=== PATIENT | female | born 1940 | race Caucasian/White ===

== ENCOUNTER 2016-11-16 10:04 | Outpatient (CLI) | payer MEDICARE, OTHER ==
[2015-07-28 06:36] VITALS: BP 109/65
[2016-11-16 10:38] LABS: BASOPHILS % 0.3 (0.0-1.5); EOSINOPHILS % 2.1 % (0.0-6.8); LYMPHOCYTES # 1.5 # k/uL (0.6-4.0); MEAN CORPUSCULAR HEMOGLOBIN 30.1 pg (28.0-34.0); MONOCYTES # 0.2 # k/uL (0.0-0.9); MONOCYTES % 3.7 % (0.0-11.0); NEUTROPHILS # 4.8 # k/uL (1.4-7.7)
[2016-11-16 11:00] LABS: eGFR (African) > 60; eGFR (Non-African) > 60
--- NOTE | 2016-11-16 14:41 | Diagnostic Imaging Report ---
[facility] [address] [facility].[address] [address] Report Submission Date: Nov 16, 2016 12:48:26 PM TYPE SOLDERING MACHINE TENDER Patient Study Name: PRAVEENA QUINTANILLA Date: Nov 16, 2016 11:07:27 AM TYPE SOLDERING MACHINE TENDER Modality Type: CR Gender: F Description: ABDOMEN : 36 Institution: [facility] Physician LEVI WALLACE Abdomen -one view CLINICAL HISTORY: Abdominal bloating and constipation. Pain for 1 month. FINDINGS: Examination abdomen single AP view demonstrates postoperative changes with surgical clips in the right upper quadrant. Gas and stool are present in the colon with gas in some nondistended small bowel loops. There is no evidence of obstruction. Degenerative changes and mild levoscoliosis are evident in the lumbar vertebrae. IMPRESSION: Postoperative abdomen. Thoracolumbar spondylosis and mild levoscoliosis. Normal-appearing bowel gas pattern. Electronically signed on Nov 16, 2016 12:48:26 PM TYPE SOLDERING MACHINE TENDER by: Omid DE LA ROSA
--- NOTE | 2016-11-16 14:42 | Diagnostic Imaging Report ---
[facility] [address] [facility].[address] [address] Report Submission Date: Nov 16, 2016 1:08:26 PM PACKAGING MATERIALS INSPECTOR Patient Study Name: PRAVEENA QUINTANILLA Date: Nov 16, 2016 11:23:09 AM PACKAGING MATERIALS INSPECTOR Modality Type: CR Gender: F Description: SPINE : 36 Institution: [facility] Physician LEVI WALLACE Thoracic spine -three views CLINICAL HISTORY: Pain with coughing. FINDINGS: Examination of thoracic spine in AP, lateral and lateral swimmer's views demonstrates osteopenia of the bony structures. Compression fractures are evident at T10, T12 and L1. There is approximately 30% loss of vertebral height at T10 with 50% at T12 and 70% at L1. There is probable compression fracture T6 although this is not as well demonstrated. Pedicles are intact and the paravertebral soft tissues are within normal limits. IMPRESSION: Osteopenia and multiple compression fractures of uncertain age. Spondylosis. Electronically signed on Nov 16, 2016 1:08:26 PM PACKAGING MATERIALS INSPECTOR by: Omid DE LA ROSA
[2016-11-16 17:13] LABS: LIPASE 36 U/L (13-60)
[2016-11-16 23:10] LABS: SERUM IRON 108 ug/dL (37-145)
[2016-11-17 12:21] LABS: ADENOVIRUS F 40/41 Not Detected (Not Detected); ASTROVIRUS Not Detected (Not Detected); C. DIFFICILE (TOXIN A/B) Positive (Not Detected); CRYPTOSPORIDIUM Not Detected (Not Detected); CYCLOSPORA CAYETANENSIS Not Detected (Not Detected); ENTAMOEBA HISTOLYTICA Not Detected (Not Detected); GIARDIA LAMBLIA Not Detected (Not Detected); ROTAVIRUS A Not Detected (Not Detected); SAPOVIRUS Not Detected (Not Detected); VIBRIO CHOLERAE Not Detected (Not Detected)
== END 2016-11-16 10:05 ==
LOC: LAB 10:04
PROVIDERS: ATTEND Physician Assistant
DX: R14.0 Abdominal distension (gaseous) (principal); R71.8 Other abnormality of red blood cells
CPT/HCPCS: 36415; 72072; 74020; 80053; 82150; 83540; 83550; 83690; 85025; 87507

== ENCOUNTER 2017-01-14 07:56 | Emergency (ER) | payer MEDICARE, OTHER ==
--- NOTE | 2017-01-14 08:38 | ED Physician Documentation ---
General Adult - HISTORIAN Historian: patient - HPI Stated Complaint: abd/back pain Chief Complaint: General Adult Onset: days ago Timing: still present Severity: moderate Further Comments: yes (Pt is a 76 yo female with recurrent abd pain and chronic or recurrent back pain in upper and in lower back. Pt was tx'd for C. diff in Oct 2016. Pain is in R side of abdomen. No n/v. No cp or sob. Pt is to have MRI of back but has not yet followed up.) - ROS CONST: no problems EYES/ENT: none CVS/RESP: none GI/: abdominal pain MS/SKIN/LYMPH: none - PAST HX Past History: other (HTN, GERD, OA, ) Allergies/Adverse Reactions: Allergies Allergy/AdvReac Type Severity Reaction Status Date / Time cephalexin monohydrate Allergy Mild Rash Verified 01/14/17 08:37 [From [employer]] Home Medications: Ambulatory Orders Medication Instructions Recorded Acetaminophen [Tylenol] 650 mg PO Q6 PRN 07/14/15 Cholecalciferol [Vitamin D-3] 2,000 unit PO DAILY 07/14/15 Clotrimazole/Betamethasone Dip 1 appl TOP Q12 07/14/15 [Clotrimazole-Betamethasone Crm] Polyethylene Glycol 3350 [Miralax] 17 gm PO 1100 PRN 07/14/15 Aspirin [Jovi] 81 mg PO DAILY tab.chew 07/28/15 Oxybutynin Chloride [Ditropan] 5 mg PO BID #60 tablet 07/28/15 Pantoprazole Sodium [Protonix] 40 mg PO 0700 #30 tablet.dr 07/28/15 Potassium Chloride [Klor-Con M20] 20 meq PO DAILY #30 tab.er.prt 01/14/17 metroNIDAZOLE [Flagyl] 500 mg PO Q8H #30 tablet 01/14/17 - SOCIAL HX Smoking History: non-smoker Alcohol Use: none Drug Use: none - FAMILY HX Family History: Yes (Mother: CVA, HTN age 101) - VITAL SIGNS Vital Signs: Vital Signs Temp Pulse Resp BP Pulse Ox 97.7 F 78 12 159/91 95 01/14/17 07:56 01/14/17 07:56 01/14/17 07:56 01/14/17 07:56 01/14/17 07:56 - REVIEWED ASSESSMENTS Nursing Assessment Reviewed: Yes Vitals Reviewed: Yes Progress - Progress Progress: CXR: 1. Hyperinflation. 2. Discoid changes in the lung bases. 3. Aortic atherosclerosis. X-ray abdomen: Moderate right colonic stool. Stable T12 and L1 compression deformities. Cholecystectomy. Bun/Cre ratio = 32 1.5 L NS IVF in ER potassium = 3.0 potassium chloride 20 mEq po x 2 in ER Rx potassium chloride 20 mEq po qd Magnesium Citrate, 1 bottle-->home. Take 1/2 bottle of Magnesium Citrate. If no bowel movement after 6 hrs, repeat 1/2 bottle. d/w LALO Rico, pt's pcp. Some concern for irresolution of C. diff. tx'd several weeks ago. Rx Flagyl 500 mg po tid x 10 days. Pt will follow up with primary provider for reassessment and potassium recheck. General Adult Physical Exam - PHYSICAL EXAM GENERAL APPEARANCE: moderate distress EENT: eye inspection normal, pharynx normal NECK: normal inspection, supple RESPIRATORY: no resp distress, chest non-tender, rales (? mild rales at base) CVS: reg rate & rhythm, heart sounds normal ABDOMEN: soft, tenderness (mild - mod R abd tenderness), decreased BS BACK: normal inspection, no CVA tenderness SKIN: warm/dry, normal color EXTREMITIES: non-tender, normal range of motion, no edema NEURO: oriented X3, motor nml, sensation nml Discharge Clincal Impression: Dehydration, hypokalemia, Recent C. diff infection Constipation Qualifiers: Constipation type: unspecified constipation type Qualified Code(s): K59.00 - Constipation, unspecified Prescriptions: Potassium Chloride [Klor-Con M20] 20 meq PO DAILY #30 tab.er.prt metroNIDAZOLE [Flagyl] 500 mg PO Q8H #30 tablet Referrals: Elvis Arias MD [Primary Care Provider] - Home Medications: Ambulatory Orders Acetaminophen [Tylenol] 650 mg PO Q6 PRN 07/14/15 Cholecalciferol [Vitamin D-3] 2,000 unit PO DAILY 07/14/15 Clotrimazole/Betamethasone Dip [Clotrimazole-Betamethasone Crm] 1 appl TOP Q12 07/14/15 Polyethylene Glycol 3350 [Miralax] 17 gm PO 1100 PRN 07/14/15 Aspirin [Jovi] 81 mg PO DAILY tab.chew 07/28/15 Oxybutynin Chloride [Ditropan] 5 mg PO BID #60 tablet 07/28/15 Pantoprazole Sodium [Protonix] 40 mg PO 0700 #30 tablet.dr 07/28/15 Potassium Chloride [Klor-Con M20] 20 meq PO DAILY #30 tab.er.prt 01/14/17 metroNIDAZOLE [Flagyl] 500 mg PO Q8H #30 tablet 01/14/17 Condition: Good Disposition: 01 HOME, SELF-CARE Decision to Admit: NO Decision Time: 11:46
[2017-01-14] MEDS ORDERED: 0.9 % SODIUM CHLORIDE 500 ML IV ONE ×3 (08:40→11:08)
[2017-01-14 09:00] LABS: APPEARANCE,URINE CLEAR (CLEAR); COLOR,URINE YELLOW (YELLOW); OCCULT BLOOD,URINE NEGATIVE (NEGATIVE); PH URINE 6.5 (5.0 - 8.0); UROBILINOGEN URINE 0.2 Eu (0.2-1.0)
[2017-01-14 09:04] LABS: BASOPHILS % 0.7 (0.0-1.5); EOSINOPHILS % 4.2 % (0.0-6.8); MEAN CORPUSCULAR VOLUME 91.3 fl (80.0-100.0); MONOCYTES % 5.6 % (0.0-11.0)
[2017-01-14 09:21] LABS: eGFR (African) > 60; eGFR (Non-African) > 60
[2017-01-14] MEDS ORDERED: ONDANSETRON HCL/PF 4 MG/ 2ML VIAL IVP ONE (09:24)
[2017-01-14] MEDS ORDERED: HYDROmorphone HCL/PF 1 MG/ML DISP.SYRIN IVP ONE (09:26)
[2017-01-14] MEDS ORDERED: POTASSIUM CHLORIDE 20 MEQ TABLET.ER PO ONE ×2 (09:43→10:32)
[2017-01-14] MEDS ORDERED: POTASSIUM CHLORIDE 20 MEQ TABLET.ER ONE (09:44)
[2017-01-14] MEDS ORDERED: MAGNESIUM CITRATE 296 ML BOTTLE PO ONE (11:52)
[2017-01-14] MEDS ORDERED: metroNIDAZOLE 500 MG TABLET PO ONE (12:22)
[2017-01-14 12:36] VITALS: BP 144/82
--- NOTE | 2017-01-14 14:31 | Diagnostic Imaging Report ---
[facility] [address] [facility].[address] [address] Report Submission Date: Jan 14, 2017 10:26:13 AM CDT Patient Study Name: PRAVEENA QUINTANILLA Date: Jan 14, 2017 8:59:18 AM CDT Modality Type: CR Gender: F Description: ABDOMEN : 36 Institution: [facility] Physician CHANTE MOTLEY - ROSE Supine abdomen HISTORY: Abdominal and back pain FINDINGS: Proximal right femur pinning has been performed. Cholecystectomy clips are present. Moderate right colonic stool is observed. The bowel gas pattern is otherwise normal. No abnormal calcifications are identified. T12 and L1 compression deformities are present without change since 11/16/2016. IMPRESSION: Moderate right colonic stool Stable T12 and L1 compression deformities. Cholecystectomy. Electronically signed on Jan 14, 2017 10:26:13 AM CDT by: Vitaliy DE LA ROSA
--- NOTE | 2017-01-14 14:32 | Diagnostic Imaging Report ---
CHANTE MOT[facility] [address] [facility] [address] [address] Report Submission Date: Jan 14, 2017 10:26:16 AM CDT Patient Study Name: PRAVEENA QUINTANILLA Date: Jan 14, 2017 8:56:19 AM CDT Modality Type: CR Gender: F Description: CHEST : 36 Institution: [facility] Physician: CHANTE MOTLEY Chest - two views Clinical history: Abdominal and back pain. Findings: Examination of the chest in PA and lateral views demonstrates discoid atelectasis in the bases. Lungs are hyperinflated. There is minimal apical pleural thickening bilaterally. Cardiac silhouette is within normal limits and the aorta is atherosclerotic. Mild compression deformities are seen in the mid to lower thoracic vertebrae. Impression: 1. Hyperinflation. 2. Discoid changes in the lung bases. 3. Aortic atherosclerosis. Electronically signed on Jan 14, 2017 10:26:16 AM CDT by: Omid DE LA ROSA
== END 2017-01-14 12:35 | disposition home or self-care (01) ==
LOC: ED 07:56
DX: E86.0 Dehydration (principal); K59.00 Constipation, unspecified
CPT/HCPCS: 71020; 74000; 80053; 81002; 82150; 83735; 83880; 85025; 87086; A9270; J1170; J2405; J7060; 96360; 99283; S1016

== ENCOUNTER 2017-01-21 06:58 | Outpatient (CLI) | payer MEDICARE, OTHER ==
--- NOTE | 2017-01-21 13:54 | Diagnostic Imaging Report ---
[facility] [address] [facility] [address] [place], [place]. [address] Report Submission Date: Jan 21, 2017 10:04:12 AM CDT Patient Study Name: PRAVEENA QUINTANILLA Date: Jan 21, 2017 8:40:18 AM CDT Modality Type: CT\SR Gender: F Description: CT ABD & PELVIS W/ CON : 36 Institution: [facility] Physician: MICHELLE SADLER - OP CT ABD & PELVIS W/ CON History:RIGHT SIDE AND EPIGASTRIC ABDOMINAL PAIN. PT STATES PAIN WHEN BREATHING. WEIGHT LOSS AND LOSS OF APPETITE PT UNABLE TO LAY FLAT ON TABLE DUE TO FRACTURES IN BACK Technique: Transaxial computed tomographic images of the abdomen and pelvis were obtained following administration of intravenous contrast according to standard protocol. Findings: There is mild atelectasis within the right lung base. The liver is normal density with tiny cyst in the right hepatic lobe. The gallbladder is absent. The pancreas, spleen, and adrenal glands are normal. 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 The left kidney is normal. There is no bowel wall thickening or dilation identified. The appendix is not identified. There is minimal atherosclerosis present. There is no adenopathy identified. The bladder is normal. The uterus is absent. There is no free fluid. There is levoscoliosis within the lumbar spine with chronic appearing compression deformities at T12 and L1. There is also evidence of prior internall fixation of the right proximal femur. Impression: 1. Status post cholecystectomy. 2. No bowel wall thickening or dilation. 3. No adenopathy. 4. Wedge compression deformities of T12 and L1, may be chronic. 5. Additional findings include minimal atherosclerosis, small hepatic cyst hysterectomy, and small right renal angiomyolipoma. Electronically signed on Jan 21, 2017 10:04:12 AM CDT by: Woo DE LA ROSA
== END 2017-01-21 07:00 ==
LOC: RAD 06:58
PROVIDERS: ATTEND Family Medicine
DX: R10.84 Generalized abdominal pain (principal)
CPT/HCPCS: 74177; Q9966; A9698

== ENCOUNTER 2017-02-05 10:52 | Outpatient (CLI) | payer MEDICARE, OTHER ==
[2017-02-05 17:30] LABS: VITAMIN D, 25-HYDROXY 33 ng/mL (30-100)
== END 2017-02-05 10:53 ==
LOC: LAB 10:52
PROVIDERS: ATTEND Physician Assistant
DX: R53.83 Other fatigue (principal); M85.80 Other specified disorders of bone density and structure, unspecified site
CPT/HCPCS: 36415; 82306; 82607

== ENCOUNTER 2017-06-17 07:03 | Day surgery (SDC) | payer MEDICARE, OTHER ==
[2017-06-17] MEDS ORDERED: PROPOFOL 500 MG/50 ML VIAL IV ONE (08:00)
[2017-06-17] MEDS ORDERED: LACTATED RINGERS 1,000 ML IV.SOLN IV ONE (08:00)
[2017-06-17] MEDS ORDERED: SALINE FLUSH 10 ML DISP.SYRIN IVF ONE (08:00)
--- NOTE | 2017-06-18 13:19 | GI Report ---
REFERRING PHYSICIAN: Dr. Elvis Arias SOCIAL WORK SPECIALIST: Don Bland MD PROCEDURE MEDICATION: Propofol as per anesthesia. INDICATIONS: Patient is a 76-year-old woman who has been having a lot of epigastric discomfort that gets worse after she eats. No matter what she eats, sometimes, it is a burning discomfort and this is in spite of taking omeprazole 20 mg daily. She denies dysphagia. Sometimes she states she gets short of breath. She has had gastritis in the past. Other medications include hydrochlorothiazide, Premarin, and she does take MiraLAX and Metamucil for constipation and alprazolam 0.5 mg at bedtime. She is 5 feet 3 inches and weighs 55 kilograms. Her abdomen is soft. She does have surgical scars from previous cholecystectomy and hysterectomy. PROCEDURE PERFORMED: Endoscopy followed by a colonoscopy. PROCEDURE: An [employer] video endoscope is passed into the esophagus under direct visualization. The esophagus looked fairly normal. In the stomach, she does have atrophic gastritis and fairly severe gastritis with erosions and friability. No rugal folds. There is some liquid and bile present. She may have mild gastroparesis. In the duodenum, a few areas of atrophic-appearing mucosa. We did take some random biopsies there and random biopsies in the stomach. Patient tolerated the procedure well. FINDINGS: 1. Moderate to severe atrophic gastritis. Biopsies pending. 2. Duodenal biopsies pending. RECOMMENDATIONS: 1. With atrophic gastritis, it is unlikely she is really producing that much acid. I think it is more important that she get an antacid like Gaviscon to take at bedtime or after meals to bind bile. 2. We will see what the biopsies show. 3. Consider stopping her omeprazole at present and maybe try an H2 josselyn, like just Pepcid before a meal as needed. cc: Dr. Elvis DE LA ROSA
--- NOTE | 2017-06-18 13:48 | GI Report ---
REFERRING PHYSICIAN: Dr. Elvis Arias CAKE PULLER: Don Bland MD PROCEDURE MEDICATION: Propofol as per anesthesia. INDICATIONS: It has been over 10 years since her screening. She also has some change in her bowel habits. She did have C-difficile back in October. Sometimes she is constipated and sometimes she has diarrhea. She does get abdominal pain and discomfort. Again, last colonoscopy was more than 10 years ago. She did have a CAT scan of the abdomen and pelvis in December of 2016 that showed status post cholecystectomy and mild atelectasis in the right lung base. There was no bowel wall thickening. Minimal atherosclerosis present. PROCEDURE PERFORMED: Colonoscopy and biopsies. PROCEDURE: An Olympus video colonoscope was advanced to the rectum. She had a very atonic redundant colon and it took a lot of maneuvering to finally reach the cecum. The appendiceal orifice was normal. The terminal ileum looked normal. On slow withdrawal, again, a very atonic redundant colon but normal-appearing mucosa. We did take random biopsies looking for microscopic colitis. Even in the sigmoid colon, I really did not see diverticula. Patient tolerated the procedure well. FINDINGS: An atonic redundant colon but normal-appearing mucosa and biopsies pending for microscopic colitis. RECOMMENDATIONS: 1. Would continue the Metamucil and MiraLAX as needed. 2. See what the biopsies show regarding microscopic colitis. 3. Consider re-looking at her colon within 10 years or sooner if clinically indicated. cc: Dr. Elvis DE LA ROSA
== END 2017-06-17 07:04 ==
LOC: OPSURG 07:03
PROVIDERS: ATTEND Internal Medicine Gastroenterology
DX: Z12.11 Encounter for screening for malignant neoplasm of colon (principal); K29.70 Gastritis, unspecified, without bleeding; R19.4 Change in bowel habit
CPT/HCPCS: 88305; J2704; J7120; 43239; G0121; S1016

== ENCOUNTER 2017-08-02 13:16 | Outpatient (CLI) | payer MEDICARE, OTHER ==
--- NOTE | 2017-08-08 10:54 | CONSULTATION REPORT ---
PRIMARY CARE PHYSICIAN: Dr. Elvis Arias CONSULTING PHYSICIAN: Alyse Steinberg MD REASON FOR CONSULT: Patient is complaining of shortness of breath with most activities. PROBLEM LIST: 1. Hypertension. 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 3. Osteoporosis. 4. Anxiety. 5. Left knee replacement in February 2015. 6. Fracture of right hip with subsequent pinning in June 2015. 7. Status post cholecystectomy. 8. Total abdominal hysterectomy. HISTORY OF PRESENT ILLNESS: This is a 76-year-old female who states that she has shortness of breath all the time, both at rest and with activity. The only time she states that she is not short of breath is at night after she takes her Xanax dose. On July 02, 2017, patient saw Dr. Arias in the office and he prescribed her an albuterol MDI which she has not been using. They heat their house with a wood furnace; however, there is no wood burning stove. 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 She does not have a cough. No chest pain. No PND. There is no edema. She denies postnasal drip. She has never been on prednisone or antibiotics for her lungs. She has no complaints of cough or hemoptysis. She has never had asthma or pneumonias. Currently, there are no fever, chills, or sweats. She is a life-long nonsmoker. Upon questioning, she keeps going back to a complaint and feeling of upper abdominal bloating which she is concerned whether that could be the reason she is short of breath. She underwent an EGD on 06-17-[address] Bland. The preliminary note suggests she has atrophic gastric duodenitis and the recommendation was to take Gaviscon, probiotics, and omeprazole. Patient states that she stopped taking omeprazole because she felt it made her short of breath. She does state that she has lost 30 pounds since December of 2016. Dr. Arias recently referred her to Dr. Ivy, the performance consultant, and per the patient, Dr. Ivy feels that her shortness of breath is not due to her cardiac status and subsequently recommended she see a park superintendent. REVIEW OF SYSTEMS: Please see HPI for pertinent review of systems. Please also see [facility] intake form. MEDICATIONS: 1. Alprazolam 0.5 mg to 1 mg at bedtime. 2. Hydrochlorothiazide 25 mg daily. 3. Omeprazole 20 mg b.i.d. 4. Potassium chloride 20 mEq daily. 5. Calcium carbonate 500 mg t.i.d. 6. Calcitonin 200 unit spray daily. 7. Oxybutynin 5 mg b.i.d. 8. Aspirin 81 mg daily. ALLERGIES: Cephalexin. SOCIAL HISTORY: She lives with her . She has a relationship with her son. 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 FAMILY HISTORY: Heart disease in father and brother. Lung disease in brother. Cancer is sister. PHYSICAL EXAMINATION: Vital Signs: Height: 5 feet 1 inch. Weight: 122 pounds. BP: 154/94, P: 93 , R: 22, T: 98.1, oxygen saturation is 94% on room air. General: This is a well-developed female in no acute distress but outwardly very anxious. HEENT: Pupils are equal and reactive to light. Oropharynx is clear. No thrush. No erythema. Neck: Supple. No lymphadenopathy. Trachea midline. Lungs: Normal excursion. Crackles at the bases, right greater than left. No wheezing. Cardiac: Rate and rhythm are regular. No murmur, rubs, or gallops. Abdomen: Soft, mild tenderness to palpation in right upper quadrant. No rigidity. No rebound. Extremities: No cyanosis, clubbing, or edema. Neurologic: Awake, alert, and oriented x3. Gait normal for her age. Grossly nonfocal. Affect: Significant anxiety. Rushed speech, somewhat tangential thought processes. IMAGING: All images independently reviewed by me personally. 1. Chest x-ray on 01-14-17: Peribronchial cuffing, hyperinflation, right- sided atelectasis, greater than left-sided atelectasis, kyphosis, and enlarged retrosternal air space. 2. Echocardiogram on 07-16-17: Ejection fraction (EF) of 64%. Mild stage 1 diastolic dysfunction. RSVP of 33 millimeters of mercury. Premature atrial contractions. ASSESSMENT AND PLAN: PROBLEM #1: Dyspnea on exertion/shortness of breath. Patient states she is short of breath with all activity and rest. However, the only time she is not short of breath is after she takes her evening dose of Xanax. Perhaps some of this shortness of breath is exacerbated by her anxiety which is extremely evident. However, she does have crackles on exam. Perhaps there is some underlying pulmonary fibrosis. PLAN: 1. Chest CT scan with contrast and high resolution CT component to assess for pulmonary fibrosis and any other underlying lung diseases. 2. PFT to be done at [facility] ([facility]). 3. Abdominal bloating. This is the patient's main complaint and concern and after speaking with her for a while, she did admit that she is worried that she could have cancer. I did review her EGD results with her and also stated that omeprazole is likely not the cause of her shortness of breath. 4. I encouraged her to resume her omeprazole. 5. Obtain the formal report of EGD/colonoscopy. 6. Obtain Dr. Bland's office notes. 7. Refer patient back to Dr. Bland for further GI evaluation. PROBLEM #2: Anxiety. Patient is very clearly an extremely anxious person. She states that aside from the alprazolam, which is taking now, she has never been treated for anxiety in the past. She definitely likes her alprazolam and takes 0.75 mg at bedtime. She states Dr. Arias instructed that she could take a pill during the day. Patient has not because she is afraid it might make her to sleepy. PLAN: 1. I encouraged the patient to experiment taking a small dose of alprazolam, for example, 0.25 mg during the day to see how she feels. 2. Continue her alprazolam at bedtime. 3. I have reviewed with her the possibility that she might benefit from further antianxiety medications. 4. Patient to return to the Pulmonary Clinic after her PFT and chest CT scan is completed. cc: Dr. Elvis [facility]as [facility]
== END 2017-08-02 13:17 ==
LOC: PULMONARY 13:16
PROVIDERS: ATTEND Internal Medicine Pulmonary Disease
DX: R06.02 Shortness of breath (principal); F41.9 Anxiety disorder, unspecified
CPT/HCPCS: 99214; G0463

== ENCOUNTER 2017-08-06 08:59 | Outpatient (CLI) | payer MEDICARE, OTHER ==
[2017-08-06 10:01] LABS: eGFR (African) > 60; eGFR (Non-African) > 60
[2017-08-06] MEDS ORDERED: ALBUTEROL SULFATE 2.5 MG/3 ML AMPUL.NEB NEB ONE (10:39)
--- NOTE | 2017-08-06 11:29 | Diagnostic Imaging Report ---
GIOVANY CARBAJAL [facility] [address] [facility] [address] [place], [place]. [address] Report Submission Date: Aug 06, 2017 11:24:46 AM CAR BODY MECHANIC Patient Study Name: PRAVEENA QUINTANILLA Date: Aug 06, 2017 10:11:35 AM CAR BODY MECHANIC Modality Type: CT\SR Gender: F Description: CT CHEST W & W/O CONTR : 36 Institution: [facility] Physician: GIOVANY CARBAJAL Examination: CT chest History: Dyspnea Comparison exams: Plain film chest dated 28 January 2016 and 14 January 2017 Technique: CT chest without and with contrast protocol. High resolution. Findings: Lungs demonstrate peripheral parenchymal scarring associated with patchy infiltrates. Focal area of prominent scarring at the right base posteriorly. 4 mm left upper lung nodule (image 28 of 61). No suspicious nodular density identified. High-resolution imaging demonstrates bronchi wall thickening involving the lower lung boyer bilaterally. Anterior mediastinum and dominic are without gross mass or pathologic adenopathy. Thoracic aorta with minimal peripheral atherosclerotic disease. No aneurysm. Tortuosity at the diaphragm. Cardiac silhouette not enlarged. No pericardial effusion. Lower neck structures and upper abdominal organs are without gross abnormality. Osseous structures demonstrate degenerative changes. Mid and lower thoracic vertebral body compression deformities. Impression: Parenchymal scarring and bronchiectasis. No acute appearing parenchymal consolidation or effusion. Not pathologic by CT criteria pulmonary nodules - follow as warranted. No evidence for thoracic aortic aneurysm dissection. Vertebral body degenerative changes and mid and lower compression deformities: Present on previous x-ray examinations. Electronically signed on Aug 06, 2017 11:24:46 AM CAR BODY MECHANIC by: Martin DE LA ROSA
== END 2017-08-06 09:00 ==
LOC: RAD 08:59
PROVIDERS: ATTEND Internal Medicine Pulmonary Disease
DX: J84.10 Pulmonary fibrosis, unspecified (principal)
CPT/HCPCS: 71270; 82565; 94060; Q9966

== ENCOUNTER 2017-08-09 13:58 | Outpatient (CLI) | payer MEDICARE, OTHER ==
--- NOTE | 2017-08-28 15:38 | OP Clinic Progress Note ---
CHIEF COMPLAINT: "My stomach still really bothers me." SIGNIFICANT PROBLEM LIST: 1. Chronic obstructive pulmonary disease (COPD), GOLD Class 3: Severe. 2. Hypertension. 3. 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 4. Anxiety. 5. Osteoporosis. 6. Left knee replacement in February 2015. 7. Fracture of right hip with subsequent pinning in June 2015. 8. Status post cholecystectomy. 9. Total abdominal hysterectomy. HISTORY OF PRESENT ILLNESS: This 76-year-old female returns for follow up regarding her complaints of shortness of breath and dyspnea on exertion. However, her main complaint continues to be epigastric fullness/bloating especially after eating. She is wondering whether the epigastric fullness can be pressing on her lungs and causing shortness of breath. She is also complaining of her chronic back pain. I asked her if she was taking alprazolam in the morning as was suggested at her last visit, and she adamantly stated that she is not taking any alprazolam. I questioned her further and then she came back and said, "Well, I probably didn' t stop it, but I might forget to take it." She states her shortness of breath is not a major problem currently and that she is able to do the activities that she likes to do. 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 Ivy. Pertinent tests include an echocardiogram done on July 16, 2017. Her ejection fraction (EF) was 64%. She had mild diastolic dysfunction, stage 1, RVSP at 33 mmHg with PACs. Her myocardial perfusion scan done on July 16, 2017, revealed an EF of 70%, no ischemia, and PACs. Dr. Ivy instructed the patient that her dyspnea on exertion was not related to her cardiac status. I also reviewed her GI workup by Dr. Bland. The significant tests include an EGD on June 17, 2017, which showed atrophic gastritis and biopsy revealed mild chronic gastritis. Her colonoscopy done on the same day showed a redundant colon and biopsies were negative. MEDICATIONS: 1. Alprazolam 0.5 mg to 1 mg at bedtime (unless patient forgets). 2. Hydrochlorothiazide 25 mg daily. 3. Omeprazole 20 mg b.i.d. 4. Potassium chloride 20 mEq daily. 5. Calcium carbonate 500 mg t.i.d. 6. Calcitonin 200 units spray daily. 7. Oxybutynin 5 mg b.i.d. 8. Aspirin 81 mg daily. ALLERGIES: Cephalexin. PHYSICAL EXAMINATION: GENERAL: This is a well-nourished, well-developed female in no acute distress speaking in full sentences. VITAL SIGNS: BP: 137/90, P: 100, R: 22, T: 96.3. Room air oxygen saturation was 94%. BMI: 23.0. HEENT: Oropharynx is clear. No thrush. NECK: Supple. No lymphadenopathy. LUNGS: Bilateral equal excursion. Occasional crackles at the bases. No wheezing. CARDIAC: Rate and rhythm are regular. No murmur, rubs, or gallops. ABDOMEN: Soft and nontender. EXTREMITIES: No cyanosis, clubbing, or edema. NEUROLOGIC: Anxious. Fast speech, tangential thinking. Alert and oriented x3. Grossly nonfocal. IMAGING: Independently reviewed by myself personally. 1. High-resolution chest CT done on 08-06-17: Bronchial wall thickening. Mild bronchiectasis, more pronounced at the bases, right greater than left. An extremely ill-defined small pulmonary nodule in left upper lobe, approximately 4 mm. 2. Pulmonary function test, spirometry only, done on 08-06-17: FVC was 1.19 L, 51% of predicted. FEV1 was 0.6 L, 34% of predicted. FEV1/FVC was 0.50. There is no bronchodilator response. The waveforms are consistent. This is compatible with GOLD Class 3, severe COPD. ASSESSMENT AND PLAN: PROBLEM #1: Severe chronic obstructive pulmonary disease (COPD), GOLD Class 3. Her spirometry definitely explains her complaints of shortness of breath and dyspnea on exertion. I explained this to the patient. I reviewed the spirometry findings, including the tracings with the patient. I educated her on the need for inhalers and she was extremely concerned regarding the cost. PLAN: 1. Tiotropium 18 mcg capsules, 1 inhalation daily: Due to concerns of cost, I will start first with a long-acting anticholinergic. Hopefully, we can add Advair or Symbicort in the future. 2. Albuterol 2 puffs every 3 hours p.r.n. shortness of breath. 3. Instructed patient to take alprazolam in the morning. This along with the tiotropium should help her shortness of breath. PROBLEM #2: Ill-defined 4 mm left upper lobe nodule. I only see this on 1 cut. Most likely it is nonpathologic but patient does have severe COPD and this warrants further evaluation in the future. PLAN: Repeat chest CT noncontrast in 6 to 8 months. PROBLEM #3: Mild bronchiectasis, again, by CT findings. Currently, patient is not symptomatic. PLAN: 1. When symptomatic, treat with appropriate antibiotics. 2. If it becomes symptomatic chronically, patient would likely benefit from a steroid inhaler. PROBLEM #4: Epigastric fullness/bloating. I instructed the patient to go back to Dr. Bland for further evaluation. PLAN: Make an appointment with location director, Dr. Bland. PROBLEM #5: Anxiety. Patient still is extremely anxious and also because of her stating that she was not taking any alprazolam but then in a sentence or 2, she was taking it and then maybe she forgot, I wonder also if she could have early dementia. PLAN: 1. Instructed patient to take alprazolam as originally suggested by Dr. Arias , 1 pill in the morning and then 1 pill in the evening. 2. Patient may benefit from further evaluation of her mental status. cc: Dr. Juana DE LA ROSA
== END 2017-08-09 14:00 ==
LOC: PULMONARY 13:58
PROVIDERS: ATTEND Internal Medicine Pulmonary Disease
DX: J44.9 Chronic obstructive pulmonary disease, unspecified (principal); R91.1 Solitary pulmonary nodule; J47.9 Bronchiectasis, uncomplicated; R14.0 Abdominal distension (gaseous); F41.9 Anxiety disorder, unspecified
CPT/HCPCS: 99214; G0463

== ENCOUNTER 2017-10-08 08:20 | Outpatient (CLI) | payer MEDICARE, OTHER | END 2017-10-08 08:24 | LOC: OUT 08:20 | PROVIDERS: ATTEND General Practice | DX: N81.9 Female genital prolapse, unspecified (principal) | CPT/HCPCS: G0463 ==

== ENCOUNTER 2018-02-21 08:02 | Outpatient (CLI) | payer MEDICARE, OTHER ==
[2018-02-21 08:57] LABS: eGFR (African) > 60; eGFR (Non-African) > 60
== END 2018-02-21 08:10 ==
LOC: LAB 08:02
PROVIDERS: ATTEND Family Medicine
DX: I10 Essential (primary) hypertension (principal); R19.7 Diarrhea, unspecified
CPT/HCPCS: 36415; 80053; 80061; 83516

== ENCOUNTER 2018-04-23 12:50 | Outpatient (CLI) | payer MEDICARE, OTHER ==
[2018-04-23 13:52] LABS: eGFR (African) > 60; eGFR (Non-African) > 60
== END 2018-04-23 12:52 ==
LOC: RAD 12:50
PROVIDERS: ATTEND Family Medicine
DX: J43.1 Panlobular emphysema (principal); R10.84 Generalized abdominal pain
CPT/HCPCS: 71260; 74177; 82565

== ENCOUNTER 2018-08-05 14:24 | Outpatient (CLI) | payer MEDICARE, OTHER ==
[2018-08-05 15:38] LABS: eGFR (Non-African) > 60
== END 2018-08-05 14:25 ==
LOC: LAB 14:24
PROVIDERS: ATTEND Family Medicine
DX: E83.52 Hypercalcemia (principal)
CPT/HCPCS: 36415; 80053

== ENCOUNTER 2018-08-27 14:03 | Outpatient (CLI) | payer MEDICARE, OTHER ==
--- NOTE | 2018-08-27 15:40 | Diagnostic Imaging Report ---
MICHELLE SADLER [facility] [address] [facility] [place] [address]. [id number] Report Submission Date: Apr 23, 2018 10:07:31 PM CDT Patient Study Name: PRAVEENA QUINTANILLA I Date: Apr 23, 2018 1:55:08 PM CDT Modality Type: CT\SR Gender: F Description: CT CHEST/ABDOMEN/PELVIS W/ CONTRAST : 38 Institution: [facility] Physician: MICHELLE SADLER CT chest abdomen and pelvis with contrast History: COPD. Increasing shortness of breath and abdominal pain. Graph comparison: CT abdomen and pelvis from January 21, [address] chest from August 06, 2017. CT CHEST: Technique: Helically acquired images were obtained from the thoracic inlet to the hemidiaphragms following IV contrast and comparison made with August 06 2017. Findings: The descending thoracic aorta is tortuous. There is no thoracic aortic aneurysm. There is no mediastinal or hilar lymphadenopathy. There is no pericardial or pleural effusion. Emphysematous findings of the lungs present. Streaky linear densities are present at both the right upper and right lower lobe, unchanged. There is a relatively more focal subpleural and somewhat nodular appearing focus posteriorly at the right lung base which has not changed. T the T here is a small calcified granuloma at the left upper lobe. Impression: Emphysema. Stable 4 mm calcified granuloma at the left upper lobe. Stable streaky areas of scarring involving the right lung diffusely. Subpleurally at the right lung base, adjacent to the area of scarring, there is a subpleural density which is mildly nodular in appearance measuring approximately 8 mm and unchanged. This area probably represents a component of pleural parenchymal scarring given the findings elsewhere. Per/nurse 2017 criterion, additional follow-up chest CT would be recommended in 18 months time to ensure stability of the relatively more nodular subpleural focus at the right lower lobe. CT ABDOMEN AND PELVIS: Technique: Helically acquired images were obtained from the hemidiaphragms to the pelvic floor following IV contrast. Findings: The liver, spleen, adrenal glands and pancreas are within normal limits. There has been a cholecystectomy. The left kidney is unremarkable. Fatty attenuation lesions are present at the upper pole of the right kidney consistent with angiomyolipomata. The largest of these measures 1.3 cm in greatest dimension and the smaller 9 mm in greatest dimension. These findings are unchanged compared with December 2016. The abdominal aorta is normal in caliber. Small and large bowel loops in the abdomen are normal in caliber. The bladder is unremarkable. There has been hysterectomy. There is no free fluid in the abdomen or pelvis. There is a right hip screw. The bones are osteoporotic. There is a chronic osteoporotic type compression fracture of the L1 vertebral body with an estimated 80% loss of vertebral height body height. Involving T12 and L5, there are unchanged osteoporotic compression fractures. At T12, there is an estimated 40% loss of vertebral body height. At L5, there is an estimated 10% loss of vertebral body height. There are additionally osteoporotic type compression fractures at T8 and T10 which are unchanged. There is an estimated 70% loss of vertebral body height at T8 and estimated 15% loss at T10. There is additionally a chronic osteoporotic type compression fracture of T6 with an estimated 40% loss of vertebral body height. Impression: Stable angiomyolipomata are present at the upper pole of the right kidney as detailed in the body of the report. Multilevel , stable osteoporotic compression fractures of the thoracic and lumbar spine are present. Electronically signed on Apr 23, 2018 10:07:31 PM CDT by: Isaura DE LA ROSA
--- NOTE | 2018-08-31 08:13 | OP Clinic Progress Note ---
SUBJECTIVE: Clari is a 77-year-old female seen today for painful possibly ingrown toenail and also calluses. The patient states that she has been having pain at her right great toenail medial border at the tip only for a little while now. She also gets pain underneath her left sub 2nd metatarsal head where she had a pretty significant second hammertoe and a callus that hurts on the inside medial side of her right 2nd toe DIPJ. She is here for treatment of these conditions and is interested in meeting with me later to possibly discuss conservative versus surgical correction of these things. She does not admit to any fevers, chills, nausea, vomiting, shortness of breath or chest pain at this time. She sees Dr. Arias as her PCP. OBJECTIVE: VITAL SIGNS: T: 982.degrees Fahrenheit, heart rate 95, R: 20, BP: 158/94, pulse oximetry is 91% on room air. VASCULAR: Palpable pulses bilaterally. Capillary refill time is less than 3 seconds to the toes bilaterally. No edema bilaterally. DERMATOLOGIC: Toenails are long, thick, and discolored bilaterally at 1 through 5 on the right and 2 through 5 on the left. The patient also has hyperkeratotic lesions noted at sub 2nd metatarsal head of the left foot, as well as medial DIPJ right 2nd toe. There is no erythema or open lesions noted on the patient's feet. MUSCULOSKELETAL: There is pain on palpation noted at the hyperkeratotic lesions. There are distal contractures significantly noted at the left 2nd toe, as well as the right 2nd toe at a lesser degree. The patient also has a hallux valgus noted on the left and right feet with the left foot being worse. The left 2nd toe is being under ridden by the 1st toe. NEUROLOGIC: Light touch sensation is intact to all the toes of bilateral feet. ASSESSMENT: 1. Dermatophytosis of nail bilaterally. 2. Hyperkeratosis bilaterally. 3. Hammertoe, 2nd toe bilaterally. 4. Hallux valgus bilaterally. PROCEDURE #1: Trimming of nails bilaterally of 1 through 5 on the right and 2 through 5 on the left without incident. PROCEDURE #2: Sharp debridement of hyperkeratotic lesions right medial 2nd toe DIPJ and left sub 2nd metatarsal head. The patient tolerated these procedures well. There was a small amount of bleeding at a small piedad at the sub 2nd metatarsal head debridement which was dressed triple antibiotic ointment and a Band-Aid and this may be removed tomorrow, as it was very superficial. PLAN: We discussed conservative versus surgical management of the hammertoes, as well as the calluses and bunions that would need to be addressed if we fix the 2nd toe and the patient would like to try padding at this point in time, as she has already tried padding and other things and would like to try ours before discussing surgery. The patient will pickling operator some pads at the [facility] today from my nurse, Imelda. Return to clinic in 2 weeks to the [facility] to discuss more conservative versus surgical options or in 3 months for nails and callus care. cc: Dr. Elvis DE LA ROSA
== END 2018-08-27 14:05 ==
LOC: POD 14:03
PROVIDERS: ATTEND Podiatrist Foot & Ankle Surgery
DX: B35.9 Dermatophytosis, unspecified (principal); L84 Corns and callosities; M20.41 Other hammer toe(s) (acquired), right foot; M20.42 Other hammer toe(s) (acquired), left foot; M20.11 Hallux valgus (acquired), right foot; M20.12 Hallux valgus (acquired), left foot
CPT/HCPCS: 11055; 11721

== ENCOUNTER 2018-10-08 09:03 | Inpatient (IN) | payer MEDICARE, OTHER ==
[2018-10-08] MEDS ORDERED: methylPREDNISolone SOD SUCC 125 MG/2 ML VIAL IVP ONE (09:23)
[2018-10-08 09:32] VITALS: BMI 21.7
[2018-10-08 11:01] LABS: BASOPHILS % 0.3 (0.0-1.5); EOSINOPHILS % 2.7 % (0.0-6.8); MEAN CORPUSCULAR HEMOGLOBIN 28.8 pg (28.0-34.0); MONOCYTES % 3.7 % (0.0-11.0); NEUTROPHILS # 5.6 # k/uL (1.4-7.7)
[2018-10-08] MEDS: IPRATROPIUM/ALBUTEROL SULFATE 3 ML AMPUL.NEB NEB SCH ×3 (11:04→21:53)
[2018-10-08] MEDS: SALINE FLUSH 10 ML DISP.SYRIN IV SCH ×2 (11:04→21:55)
[2018-10-08 11:32] LABS: eGFR (Non-African) > 60
[2018-10-08] MEDS ORDERED: ALPRAZOLAM 0.5 MG TABLET PO ONE (20:46)
[2018-10-08] MEDS: methylPREDNISolone SOD SUCC 40 MG/ML VIAL IVP SCH (22:01)
[2018-10-09] MEDS: IPRATROPIUM/ALBUTEROL SULFATE 3 ML AMPUL.NEB NEB SCH ×6 (02:04→20:17)
--- NOTE | 2018-10-09 04:47 | Diagnostic Imaging Report ---
UNA SPAULDING [facility] [address] [facility].[address] [id number] Report Submission Date: Oct 08, 2018 1:30:12 PM TREATMENT COUNSELOR Patient Study Name: PRAVEENA QUINTANILLA I Date: Oct 08, 2018 12:31:43 PM TREATMENT COUNSELOR Modality Type: DX Gender: F Description: CHEST : 38 Institution: [facility] Physician: UNA SPAULDING PA and lateral chest History: Tachypnea. Short of breath. PA and lateral chest dated October 08, 2018 is compared with January 14, 2017. The cardiomediastinal silhouette is unchanged in size and configuration. Pulmonary vascularity is normal. No confluent infiltrate or pleural effusion is noted. Unchanged multilevel compression deformities of the thoracic spine are present. Impression: No acute cardiopulmonary process. However, the follow-up recommendations from the chest CT performed March 2018 would remain. Electronically signed on Oct 08, 2018 1:30:12 PM TREATMENT COUNSELOR by: Isaura DE LA ROSA
[2018-10-09] MEDS: FAMOTIDINE 20 MG TABLET PO SCH ×3 (07:47→20:25)
--- NOTE | 2018-10-09 08:08 | History and Physical Report ---
History of Present Illnes - History of Present Illness Reason for Visit: Shortness of Breath History of Present Illness: Patient is a 77-year-old white female that presented to the clinic with increasing shortness of breath. She states that she was diagnosed with COPD a year ago and has been trying different medications to decrease exacerbations. Over the last couple of weeks she has been increasingly been short of breath. Today she is tachypneic with a resp. rate > 30, her oxygen sat is 87% and she is not on home oxygen. She is not able to complete a full sentence without stopping to catch her breath. She does not know if she has had a fever or chills, she has had a cough but has not really been coughing anything up. Discussed patient symptoms and she has agreed to be admitted to the hospital- patient stated that she feels like she might have some extra fluid on. Will admit patient as inpatient to stabilize breathing, adjust medications, and evaluate patient for home oxygen. - Past Medical History Cardiac: HTN Pulmonary: COPD (panlobular emphysema) Gastrointestinal: GERD Psych: Depression Musculoskeletal: Chronic low back pain, Osteoarthritis - Past Surgical History Past Surgical History: Cholecystectomy, Hysterectomy, Total Hip Replacement (ORIF), Tubal Ligation, Other (Cystocele and rectocele repair, rentina surgery, BTL, Vein stripping, ) - Past Social History Smoke: No Alcohol: None Drugs: None Lives: With Family Domestic Violence: Negative - Health Maintenance Health Maintenance: Cholesterol, Mammogram (2 years ago). denies: Influenza Vaccine (refuses), Pneumococcal Vaccine (refuses) Influenza Vaccine: Current for this Influenza Season Pneumonia Vaccine: Yes Resuscitation Status: Resusciation Status Resuscitation Status Full Code - Unable to Obtain History Unable to Obtain: No Review of Systems - Review of Systems Constitutional: Weakness. negative: Fever, Chills Eyes: negative: vision change ENT: Nose Discharge. negative: Ear Pain, Throat Swelling Respiratory: Cough, Shortness of Breath, SOB with Excertion Cardiovascular: negative: Chest Pain, Edema Gastrointestinal: negative: Nausea, Vomiting, Diarrhea Genitourinary: negative: Dysuria Musculoskeletal: Back Pain Skin: negative: Rash Neurological: Weakness - Medications/Allergies Allergies/Adverse Reactions: Allergies Allergy/AdvReac Type Severity Reaction Status Date / Time cephalexin monohydrate Allergy Mild Rash Verified 10/08/18 12:57 [From Keflex] Current Inpatient Medications: Current Inpatient Medications Albuterol/Ipratropium (Duoneb) 3 ml NEB Q4 [facility] Last Admin: 10/09/18 06:30 Dose: 3 ml Alprazolam (Xanax) 0.5 mg PO NOW ONE Stop: 10/08/18 20:47 Last Admin: 10/08/18 22:01 Dose: 0.5 mg Cholecalciferol (Vitamin D-3) 2,000 unit PO DAILY [facility] Citalopram Hydrobromide (Celexa) 10 mg PO QDAY [facility] Famotidine (Pepcid) 20 mg PO 717 [facility] Last Admin: 10/09/18 07:47 Dose: 20 mg Hydrochlorothiazide (Hydrodiuril) 25 mg PO DAILY [facility] Methylprednisolone Sodium Succinate (Solu-Medrol) 80 mg IVP Q12 [facility] Last Admin: 10/08/18 22:01 Dose: 80 mg Miscellaneous (Lisinopril/Hydrochlorothiazide [Prinizide]) 1 each PO DAILY [facility] Potassium Chloride (Klor-Con M20) 20 meq PO DAILY [facility] Sodium Chloride (Normal Saline Flush) 3 ml IV BID [facility] Last Admin: 10/08/18 21:55 Dose: 3 ml Exam - Exam Vital Signs: Vital Signs (72 hours) 10/08/18 10/08/18 10/08/18 09:20 09:21 09:24 Temperature 98.5 F 98.5 F Pulse Rate [ 90 90 Left] Respiratory 22 22 Rate Blood Pressure 144/76 144/76 [Left Arm] O2 Sat by Pulse 97 97 97 Oximetry 10/08/18 10/08/18 10/08/18 13:20 18:00 21:47 Temperature 98.2 F 98.4 F 98.1 F Pulse Rate [ 90 107 H 105 H Left] Respiratory 28 H 26 H 20 Rate Blood Pressure 133/67 141/76 113/52 [Left Arm] O2 Sat by Pulse 94 97 96 Oximetry 10/08/18 10/09/18 10/09/18 22:00 02:00 06:00 Temperature 97.9 F 97.9 F Pulse Rate [ 105 H 74 110 H Left] Respiratory 20 16 14 Rate Blood Pressure 104/67 118/69 [Left Arm] O2 Sat by Pulse 96 96 96 Oximetry General: Alert, Oriented to Person, Oriented to Place, Oriented to Time, Cooperative, Moderate distress HEENT: Atraumatic, PERRLA, Mouth Mucous membr. moist/Sparks, Nose Mucous membr. moist/Sparks Neck: Normal Range of Motion Lungs: Wheezes, Decreased Air Movement Cardiovascular: Regularly Irregular Peripheral Edema: none Peripheral Pulses: 2+ Abdomen: Normal bowel sounds, Soft, No tenderness Integumentary: Warm, Dry, Pale Extremities: No edema, Normal pulses, No tenderness/swelling Neurological: Normal gait, Strength Equal Bilat, Sensation intact, Cranial nerves 3-12 NL Psych/Mental Status: Mental status NL, Mood NL, Appropriate Affect - Laboratory Results Laboratory Results: Laboratory Results 10/08/18 10/08/18 10/08/18 10:20 10:20 10:20 WBC 7.40 RBC 5.60 H Hgb 16.1 H Hct 50.1 H MCV 89.0 MCH 28.8 MCHC 32.1 RDW 12.5 Plt Count 233 Neut % (Auto) 75.6 Lymph % (Auto) 17.7 [place] % (Auto) 3.7 Eos % (Auto) 2.7 Baso % (Auto) 0.3 Neut # (Auto) 5.6 Lymph # (Auto) 1.3 [place] # (Auto) 0.3 Eos # (Auto) 0.2 Baso # (Auto) 0.0 Sodium 141 Potassium 3.9 Chloride 105 Carbon Dioxide 27 BUN 16 Creatinine 0.70 Estimated Creat Clear 67 Est GFR ( Amer) > 60 Est GFR (Non-Af Amer) > 60 Glucose 64 L Calcium 10.0 Total Bilirubin 0.5 AST 47 H ALT 15 Alkaline Phosphatase 70 Troponin I < 0.03 L NT-Pro-B Natriuret Pep 192.8 Total Protein 7.6 Albumin 4.6 Assessment/Plan - Assessment/Plan (1) COPD exacerbation Status: Acute Current Visit: Yes Assessment: Lungs are tight throughout- oxygen saturation 87% on RA- tachypnea >30 Plan: Will give HFNs every 4 hrs, IS, and IV steroids (2) Essential hypertension Status: Chronic Current Visit: No Assessment: Stable with home meds Plan: Will continue home medications (3) Depression with anxiety Status: Acute Current Visit: Yes Assessment: stable with home meds Plan: Will continue home meds (4) GERD (gastroesophageal reflux disease) Status: Acute Current Visit: Yes Qualifiers: Esophagitis presence: without esophagitis Qualified Code(s): K21.9 - Gastro-esophageal reflux disease without esophagitis Assessment: Stable on home meds Plan: Will continue on home meds VTE Assessment - RISK FACTOR SCORE VTE RISK FACTOR SCORES: AGE OVER 60 YEARS (pt is up and ambulatory will order lovenox)
--- NOTE | 2018-10-09 08:10 | Inpatient Progress Note ---
Objective - Exam Vitals and I&O: Vital Signs Temp 97.9 F 10/09/18 06:00 Pulse 110 H 10/09/18 06:00 Resp 14 10/09/18 06:00 BP 118/69 10/09/18 06:00 Pulse Ox 96 10/09/18 06:00 Intake & Output 10/08/18 10/08/18 10/09/18 11:59 23:59 11:59 Intake Total 480 Output Total 2 Balance 478 Weight 55.792 kg Intake: Oral 480 Output: Urine 2 Other: Voiding Method Toilet Toilet Toilet # Voids 2 # Bowel Movements 0 - Results Results: Laboratory Results WBC 7.40 K/ul (4.00-12.00) 10/08/18 10:20 RBC 5.60 M/ul (3.90-5.20) H 10/08/18 10:20 Hgb 16.1 g/dL (12.0-16.0) H 10/08/18 10:20 Hct 50.1 % (34.5-46.5) H 10/08/18 10:20 MCV 89.0 fl (80.0-100.0) 10/08/18 10:20 MCH 28.8 pg (28.0-34.0) 10/08/18 10:20 MCHC 32.1 g/dL (30.0-36.0) 10/08/18 10:20 RDW 12.5 % (11.3-14.3) 10/08/18 10:20 Plt Count 233 K/mm3 (130-400) 10/08/18 10:20 Neut % (Auto) 75.6 % (39.0-79.0) 10/08/18 10:20 Lymph % (Auto) 17.7 % (16.0-50.0) 10/08/18 10:20 Brown % (Auto) 3.7 % (0.0-11.0) 10/08/18 10:20 Eos % (Auto) 2.7 % (0.0-6.8) 10/08/18 10:20 Baso % (Auto) 0.3 (0.0-1.5) 10/08/18 10:20 Neut # (Auto) 5.6 # k/uL (1.4-7.7) 10/08/18 10:20 Lymph # (Auto) 1.3 # k/uL (0.6-4.0) 10/08/18 10:20 Brown # (Auto) 0.3 # k/uL (0.0-0.9) 10/08/18 10:20 Eos # (Auto) 0.2 # k/uL (0.0-0.6) 10/08/18 10:20 Baso # (Auto) 0.0 # k/uL (0.0-0.5) 10/08/18 10:20 Sodium 141 mmol/L (136-145) 10/08/18 10:20 Potassium 3.9 mmol/L (3.5-5.1) 10/08/18 10:20 Chloride 105 mmol/L (98-107) 10/08/18 10:20 Carbon Dioxide 27 mmol/L (22-30) 10/08/18 10:20 BUN 16 mg/dL (7-17) 10/08/18 10:20 Creatinine 0.70 mg/dL (0.52-1.04) 10/08/18 10:20 Estimated Creat Clear 67 10/08/18 10:20 Est GFR ( Amer) > 60 (60-) 10/08/18 10:20 Est GFR (Non-Af Amer) > 60 (60-) 10/08/18 10:20 Glucose 64 mg/dL (74-106) L 10/08/18 10:20 Calcium 10.0 mg/dL (8.4-10.2) 10/08/18 10:20 Total Bilirubin 0.5 mg/dL (0.2-1.3) 10/08/18 10:20 AST 47 U/L (15-46) H 10/08/18 10:20 ALT 15 U/L (13-69) 10/08/18 10:20 Alkaline Phosphatase 70 U/L (38-126) 10/08/18 10:20 Troponin I < 0.03 ng/mL (0.03-0.06) L 10/08/18 10:20 NT-Pro-B Natriuret Pep 192.8 pg/mL (15.0-450.0) 10/08/18 10:20 Total Protein 7.6 g/dL (6.3-8.2) 10/08/18 10:20 Albumin 4.6 g/dL (3.5-5.0) 10/08/18 10:20
[2018-10-09] MEDS: CITALOPRAM HYDROBROMIDE 20 MG TABLET PO SCH (08:54)
[2018-10-09] MEDS: SALINE FLUSH 10 ML DISP.SYRIN IV SCH ×2 (08:55→20:22)
[2018-10-09] MEDS: POTASSIUM CHLORIDE 20 MEQ TABLET.ER PO SCH (08:55)
[2018-10-09] MEDS: CHOLECALCIFEROL (VIT D3) 1,000 UNIT TABLET PO SCH (08:56)
[2018-10-09] MEDS: HYPROMELLOSE OP PRN (08:58)
[2018-10-09] MEDS: OPTH OP PRN (08:58)
[2018-10-09] MEDS: DEXTRAN OP PRN (08:58)
[2018-10-09] MEDS ORDERED: HYDROCHLOROTHIAZIDE PO SCH (09:00)
[2018-10-09] MEDS ORDERED: LISINOPRIL PO SCH (09:00)
[2018-10-09] MEDS: methylPREDNISolone SOD SUCC 40 MG/ML VIAL IVP SCH ×3 (09:31→20:23)
[2018-10-09] MEDS: LISINOPRIL 20 MG TABLET PO SCH (10:39)
[2018-10-09] MEDS: HYDROCHLOROTHIAZIDE 25 MG TABLET PO SCH (10:39)
--- NOTE | 2018-10-09 12:52 | Inpatient Progress Note ---
Subjective - Required Recertification Statement I anticipate X number of days because-include discharge plan: 1 - Review of Systems Events since last encounter: Patient ambulated with physical and occupational therapy- patient walked with out oxygen and desated to <75%. Patient will qualify for home oxygen. Script written and paperwork completed. General: Fatigue. Denies: Chills HEENT: Denies: Head Aches, Eye Pain, Sore Throat Pulmonary: Dyspnea, Cough Cardiovascular: Denies: Chest Pain Gastrointestinal: Denies: Nausea, Vomiting, Abdominal Pain Genitourinary: Denies: Dysuria Neurological: Weakness Objective - Exam Vitals and I&O: Vital Signs Temp 98.1 F 10/09/18 08:59 Pulse 72 10/09/18 10:00 Resp 18 10/09/18 10:00 BP 145/76 10/09/18 08:59 Pulse Ox 99 10/09/18 10:00 Intake & Output 10/08/18 10/09/18 10/09/18 23:59 11:59 23:59 Intake Total 480 240 240 Output Total 2 Balance 478 240 240 Intake: Oral 480 240 240 Output: Urine 2 Other: Voiding Method Toilet Toilet # Voids 2 # Bowel Movements 0 General: Alert, Oriented to Person, Oriented to Place, Oriented to Time, Coope rative, Mild distress (with exertion) HEENT: Atraumatic, PERRLA, Mouth Mucous membr. moist/[place], Nose Mucous membr. moist/[place] Neck: +2 carotid pulse wo bruit Lungs: Normal air movement, Speaks full Sentences, Accessory Muscle Use Cardiovascular: Irregularly Irregular Abdomen: Normal bowel sounds, Soft, No tenderness Extremities: No edema, Normal pulses, No tenderness/swelling Skin: Normal, [place], Warm, Dry Neurological: Normal gait, Normal speech, Strength Equal Bilat, Sensation intact, Cranial nerves 3-12 NL Psych/Mental Status: Mental status NL, Mood NL, Appropriate Affect - Results Results: Laboratory Results WBC 7.40 K/ul (4.00-12.00) 10/08/18 10:20 RBC 5.60 M/ul (3.90-5.20) H 10/08/18 10:20 Hgb 16.1 g/dL (12.0-16.0) H 10/08/18 10:20 Hct 50.1 % (34.5-46.5) H 10/08/18 10:20 MCV 89.0 fl (80.0-100.0) 10/08/18 10:20 MCH 28.8 pg (28.0-34.0) 10/08/18 10:20 MCHC 32.1 g/dL (30.0-36.0) 10/08/18 10:20 RDW 12.5 % (11.3-14.3) 10/08/18 10:20 Plt Count 233 K/mm3 (130-400) 10/08/18 10:20 Neut % (Auto) 75.6 % (39.0-79.0) 10/08/18 10:20 Lymph % (Auto) 17.7 % (16.0-50.0) 10/08/18 10:20 [place] % (Auto) 3.7 % (0.0-11.0) 10/08/18 10:20 Eos % (Auto) 2.7 % (0.0-6.8) 10/08/18 10:20 Baso % (Auto) 0.3 (0.0-1.5) 10/08/18 10:20 Neut # (Auto) 5.6 # k/uL (1.4-7.7) 10/08/18 10:20 Lymph # (Auto) 1.3 # k/uL (0.6-4.0) 10/08/18 10:20 [place] # (Auto) 0.3 # k/uL (0.0-0.9) 10/08/18 10:20 Eos # (Auto) 0.2 # k/uL (0.0-0.6) 10/08/18 10:20 Baso # (Auto) 0.0 # k/uL (0.0-0.5) 10/08/18 10:20 Sodium 141 mmol/L (136-145) 10/08/18 10:20 Potassium 3.9 mmol/L (3.5-5.1) 10/08/18 10:20 Chloride 105 mmol/L (98-107) 10/08/18 10:20 Carbon Dioxide 27 mmol/L (22-30) 10/08/18 10:20 BUN 16 mg/dL (7-17) 10/08/18 10:20 Creatinine 0.70 mg/dL (0.52-1.04) 10/08/18 10:20 Estimated Creat Clear 67 10/08/18 10:20 Est GFR ( Amer) > 60 (60-) 10/08/18 10:20 Est GFR (Non-Af Amer) > 60 (60-) 10/08/18 10:20 Glucose 64 mg/dL (74-106) L 10/08/18 10:20 Calcium 10.0 mg/dL (8.4-10.2) 10/08/18 10:20 Total Bilirubin 0.5 mg/dL (0.2-1.3) 10/08/18 10:20 AST 47 U/L (15-46) H 10/08/18 10:20 ALT 15 U/L (13-69) 10/08/18 10:20 Alkaline Phosphatase 70 U/L (38-126) 10/08/18 10:20 Troponin I < 0.03 ng/mL (0.03-0.06) L 10/08/18 10:20 NT-Pro-B Natriuret Pep 192.8 pg/mL (15.0-450.0) 10/08/18 10:20 Total Protein 7.6 g/dL (6.3-8.2) 10/08/18 10:20 Albumin 4.6 g/dL (3.5-5.0) 10/08/18 10:20 Assessment/Plan - Assessment/Plan (1) COPD exacerbation Status: Acute Current Visit: Yes Assessment: Respiratory effort is improving with treatment- however pt get SOA with exertion Plan: Continue steroids and HFN (2) Essential hypertension Status: Chronic Current Visit: No Assessment: Blood pressures are stable Plan: Will continue with home meds (3) Depression with anxiety Status: Acute Current Visit: Yes Assessment: Stable on home meds Plan: Continuing home meds (4) GERD (gastroesophageal reflux disease) Status: Acute Current Visit: Yes Qualifiers: Esophagitis presence: without esophagitis Qualified Code(s): K21.9 - Gastro-esophageal reflux disease without esophagitis Assessment: Stable on home meds Plan: Continue home meds
[2018-10-09] MEDS ORDERED: ALPRAZOLAM 0.5 MG TABLET PO ONE ×2 (15:06→21:00)
[2018-10-09] MEDS: FLUTICASONE/SALMETEROL 250-50 INHALER IH SCH (20:16)
[2018-10-10] MEDS: IPRATROPIUM/ALBUTEROL SULFATE 3 ML AMPUL.NEB NEB SCH ×3 (05:46→10:41)
[2018-10-10 08:22] VITALS: BP 119/59
--- NOTE | 2018-10-10 09:00 | Discharge Summary ---
Discharge Summary - Discharge Sumary History of Present Illness: Patient is a 77-year-old white female that presented to the clinic with increasing shortness of breath. She states that she was diagnosed with COPD a year ago and has been trying different medications to decrease exacerbations. Over the last couple of weeks she has been increasingly been short of breath. Today she is tachypneic with a resp. rate > 30, her oxygen sat is 87% and she is not on home oxygen. She is not able to complete a full sentence without stopping to catch her breath. She does not know if she has had a fever or chills, she has had a cough but has not really been coughing anything up. Discussed patient symptoms and she has agreed to be admitted to the hospital- patient stated that she feels like she might have some extra fluid on. Will admit patient as inpatient to stabilize breathing, adjust medications, and evaluate patient for home oxygen. Condition at Discharge: Stable Home Medications: Ambulatory Orders Medication Instructions Recorded Acetaminophen [Tylenol] 650 mg PO Q6 PRN 07/14/15 Cholecalciferol [Vitamin D-3] 2,000 unit PO DAILY 07/14/15 Polyethylene Glycol 3350 [Miralax] 17 gm PO 1100 PRN 07/14/15 Potassium Chloride [Klor-Con M20] 20 meq PO DAILY #30 tab.er.prt 01/14/17 metroNIDAZOLE [Flagyl] 500 mg PO Q8H #30 tablet 01/14/17 Fluticasone/Salmeterol [Advair 1 each IH BID #1 ea 10/10/18 250-50 Diskus] predniSONE [Deltasone] 40 mg PO DAILY 5 Days tablet 10/10/18 Consultations this Visit: None Procedures this Visit: None Allergies/Adverse Reactions: Allergies Allergy/AdvReac Type Severity Reaction Status Date / Time cephalexin monohydrate Allergy Mild Rash Verified 10/08/18 12:57 [From Keflex] Patient Problems: Current Active Problems Problem Status Onset COPD exacerbation Acute Depression with anxiety Acute GERD (gastroesophageal reflux disease) Acute Discharge Summary: Patient is a 77-year-old white female that was admitted for acute exacerbation of COPD- she has improved with IV steroids and scheduled nebulizers. I have educated her on several occasions on her medications and reiterated education. She is able to tell me what inhalers and nebulizers to use and when to use them. During her visit a 6 minute walk was completed without oxygen and patient desated to the 70s. She will require home oxygen and this has been set up for patient by [employer]. Patient understands that she will need to wear oxygen. Will start patient on Advair inhaler BID and prednisone 40 mg daily for 5 days. (called in to [facility]) (Use respiratory inhalers as directed Xopenox inhaler- inhale 1-2 puffs every 4-6 hours as needed for shortness of breath Advair inhaler- 1 inhale in the morning and 1 inhale in the evening Duoneb treatments for nebulizer- use one nebulizer every 4-6 hours as needed for shortness of breath when at home Wear oxygen all the time.)--- Education given to patient Hospital Course: Patient received IV steroids and scheduled nebulizers. - Final Diagnosis (1) COPD exacerbation Problems: Stable on discharge and education provided on further management Right or Left: Right (2) Essential hypertension Problems: Continue with home medications Right or Left: Right (3) Depression with anxiety Problems: Stable- continue with home medications Right or Left: Right (4) GERD (gastroesophageal reflux disease) Problems: Stable- continue with home medications Right or Left: Right
[2018-10-10] MEDS: CITALOPRAM HYDROBROMIDE 20 MG TABLET PO SCH (09:51)
[2018-10-10] MEDS: POTASSIUM CHLORIDE 20 MEQ TABLET.ER PO SCH (09:51)
[2018-10-10] MEDS: FAMOTIDINE 20 MG TABLET PO SCH (09:52)
[2018-10-10] MEDS: LISINOPRIL 20 MG TABLET PO SCH (09:52)
[2018-10-10] MEDS: CHOLECALCIFEROL (VIT D3) 1,000 UNIT TABLET PO SCH (09:52)
[2018-10-10] MEDS: HYDROCHLOROTHIAZIDE 25 MG TABLET PO SCH (09:52)
[2018-10-10] MEDS: DEXTRAN OP PRN ×2 (09:52→09:56)
[2018-10-10] MEDS: OPTH OP PRN ×2 (09:52→09:56)
[2018-10-10] MEDS: HYPROMELLOSE OP PRN ×2 (09:52→09:56)
[2018-10-10] MEDS: SALINE FLUSH 10 ML DISP.SYRIN IV SCH (09:53)
[2018-10-10] MEDS: FLUTICASONE/SALMETEROL 250-50 INHALER IH SCH (09:53)
== END 2018-10-10 11:50 | disposition home or self-care (01) | DRG 192 ==
LOC: SOUTH 09:03
PROVIDERS: ADMIT Nurse Practitioner Family; ATTEND Nurse Practitioner Family
DX: J44.1 Chronic obstructive pulmonary disease with (acute) exacerbation (principal); I10 Essential (primary) hypertension; K21.9 Gastro-esophageal reflux disease without esophagitis; F41.8 Other specified anxiety disorders
CPT/HCPCS: 36415; 71046; 80053; 83880; 84484; 85025; 87040; 93005; 97116; 97161; 97165; 97535; A9270; J1030; J2930; 99222; 99223; 99231; 99232; 99238; J2920; S1016

== ENCOUNTER 2018-10-16 15:30 | Outpatient (CLI) | payer MEDICARE, OTHER ==
[2018-10-16 19:27] LABS: eGFR (Non-African) > 60
== END 2018-10-16 15:32 ==
LOC: LABRHC 15:30
PROVIDERS: ATTEND Family Medicine
DX: E87.6 Hypokalemia (principal)
CPT/HCPCS: 80048

== ENCOUNTER 2018-11-17 13:44 | Outpatient (CLI) | payer MEDICARE, OTHER ==
[2018-11-17] MEDS ORDERED: ALBUTEROL SULFATE 2.5 MG/3 ML AMPUL.NEB NEB ONE (13:59)
== END 2018-11-17 13:46 ==
LOC: RT 13:44
PROVIDERS: ATTEND Family Medicine
DX: J44.9 Chronic obstructive pulmonary disease, unspecified (principal)
CPT/HCPCS: 94060

== ENCOUNTER 2019-01-05 11:53 | Outpatient (CLI) | payer MEDICARE, OTHER ==
--- NOTE | 2019-01-05 13:34 | Diagnostic Imaging Report ---
MICHELLE SADLER [facility] [id number] [facility] [address] [place] [address]. [id number] Report Submission Date: Jan 05, 2019 1:11:39 PM CDT Patient Study Name: PRAVEENA QUINTANILLA I Date: Jan 05, 2019 11:58:56 AM CDT Modality Type: DX Gender: F Description: L SPINE 2 OR 3 VIEWS : 36 Institution: [facility] Physician: MICHELLE SADLER EXAMINATION: L SPINE 2 OR 3 VIEWS HISTORY: CHRONIC BACK PAIN RADIATING BOTH SIDES. NKI. (Hx) COMPARISON: CT body from 04/23/2018 FINDINGS: There is mild levoscoliosis centered at L2. Sagittal alignment is otherwise normal. There are chronic compression deformities of T10, T12, L1, and L2. There is height loss of approximately 75% at L1, 50% at T12, 25% at T10, and 15% at L2. The L2 compression deformity appears new. The other compression deformities appear unchanged. There is mild intervertebral disc space narrowing as well as mild sclerosis of the lower lumbar facets. Cholecystectomy clips are noted. IMPRESSION: 1. T10, T12, L1, and L2 compression deformities. The L2 compression deformity is new. The other compression deformities are unchanged since 04/23/2018. 2. Mild lumbar degenerative change. Electronically signed on Jan 05, 2019 1:11:39 PM CDT by: Hernandez DE LA ROSA
== END 2019-01-05 12:00 ==
LOC: RAD 11:53
PROVIDERS: ATTEND Family Medicine
DX: M54.5 Low back pain (principal); M48.56XA Collapsed vertebra, not elsewhere classified, lumbar region, initial encounter for fracture; M48.55XA Collapsed vertebra, not elsewhere classified, thoracolumbar region, initial encounter for fracture; M48.54XA Collapsed vertebra, not elsewhere classified, thoracic region, initial encounter for fracture
CPT/HCPCS: 72100

== ENCOUNTER 2019-01-08 16:14 | Outpatient (CLI) | payer MEDICARE, OTHER | END 2019-01-08 16:16 | LOC: RT 16:14 | PROVIDERS: ATTEND Family Medicine | DX: I49.9 Cardiac arrhythmia, unspecified (principal) ==

== ENCOUNTER 2019-10-05 18:41 | Outpatient (CLI) | payer MEDICARE, OTHER | END 2019-10-05 18:46 | LOC: LABRHC 18:41 | PROVIDERS: ATTEND Family Medicine | DX: N39.9 Disorder of urinary system, unspecified (principal) | CPT/HCPCS: 87086 ==